=== PATIENT | male | born 1980 | race Caucasian/White ===

== ENCOUNTER 2016-08-11 18:40 | Emergency (ER) | payer MEDICAID ==
[~2016-08-11] VITALS: Ht 170.2 cm; Wt 93.0 kg
[2016-08-11 18:50] VITALS: BP 149/86
== END 2016-08-11 21:42 | disposition home or self-care (01) ==
LOC: ER 18:43
DX: B86 Scabies (principal); Z88.5 Allergy status to narcotic agent

== ENCOUNTER 2016-08-17 17:57 | Emergency (ER) | payer MEDICAID ==
[~2016-08-17] VITALS: Ht 170.2 cm; Wt 93.0 kg
[2016-08-17 18:41] VITALS: BP 141/100
== END 2016-08-17 19:55 | disposition home or self-care (01) ==
LOC: ER 18:26
DX: B86 Scabies (principal); T78.40XA Allergy, unspecified, initial encounter; Z88.6 Allergy status to analgesic agent